=== PATIENT | male | born 1970 | race Hispanic/Latino ===

== ENCOUNTER 2021-03-24 11:31 | Emergency (ER) | payer BC, SELFPAY ==
--- NOTE | 2021-03-24 11:36 | ED.LOWEXIN ---
HPI - Extremity Injury (Lower) General Chief Complaint: Extremity Problem,Nontraumatic Stated Complaint: bilat knee pain Time Seen by Provider: 03/24/21 11:40 Source: patient and RN notes reviewed Mode of arrival: ambulatory Limitations: no limitations History of Present Illness HPI Narrative: 50-year-old male presents concern for bilateral knee pain. Reports pain started up extremity 2 weeks ago, first started on the left knee and in the right knee. He denies any injury or trauma. 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 He denies swelling, bruising, redness, heat. Denies decreased range of motion or strength. Reports medial pain in both knees. Reports he has been using braces which offer some relief. Reports he has been taking Aleve and Tylenol, reports some decrease in pain with those medications. Denies any history of knee pain. MD complaint: other (Knee pain) Related Data Allergies Allergy/AdvReac Type Severity Reaction Status Date / Time No Known Allergies Allergy Verified 03/24/21 11:40 Review of Systems Review of Systems: Narrative: CONSTITUTIONAL: Denies malaise, chills, sweats, or fever. SKIN: Denies bruising, redness, warmth MUSCULOSKELETAL: Reports bilateral knee pain, denies swelling NEUROLOGIC: Denies numbness, weakness All systems reviewed & are unremarkable except as noted in HPI and below PMFSH Comments At time of signature, agree with nursing past medical, surgical, social and family history. There is no relevant family history pertinent to the presenting complaint Exam Narrative: Exam Narrative: GENERAL: Well-appearing, well-nourished, and in no acute distress. HEAD: Normocephalic, atraumatic. EYES: PERRLA, conjunctivae clear NECK: Supple. CHEST: Speaks in full sentences. No respiratory distress. HEART: Regular rate and rhythm. Normal and equal peripheral pulses. EXTREMITIES: Bilateral knees have normal strength and sensation, normal range of motion. No edema or ecchymosis. 5/5 strength with knee flexion and extension. Normal sensation with sensitivity to light touch and pain. No point tenderness. No open wounds, no skin tenting, no devitalized tissue or atrophy, no trophic changes, no obvious deformity, alignment normal, nearby joints and structures intact. Distal pulses palpable and equal bilaterally, skin warm, dry, pink. Capillary refill less than 3 seconds. SKIN: Warm, dry, no rash. NEURO: Alert and oriented x3. PSYCH: Normal mood and affect Course Course Emergency Course: Patient is aware of diagnosis, understands and agrees to treatment plan. Anticipatory guidance given. Patient agrees to follow-up as directed and is aware of reasons to seek care at the emergency department. Portions of this record may have been created with voice recognition software Vital Signs Vital signs: Vital Signs Temperature 97.9 F 03/24/21 11:39 Pulse Rate 75 03/24/21 11:39 Respiratory Rate 16 03/24/21 11:39 Blood Pressure 158/83 H 03/24/21 11:39 Pulse Oximetry 100 03/24/21 11:39 Temperature 97.9 F 03/24/21 11:42 Pulse Rate 75 03/24/21 11:42 Respiratory Rate 16 03/24/21 11:42 Blood Pressure 158/83 H 03/24/21 11:42 Pulse Oximetry 100 03/24/21 11:42 Reviewed. MDM - Extremity Injury (Lower) MDM Narrative Medical decision making narrative: Patients pain is consistent with musculoskeletal etiology. No signs of neurological or vascular compromise on exam. Compartments and tissues are soft without signs of compartment syndrome. Pain is felt appropriate for further evaluation on an outpatient basis. Critical Care Time Critical Care Time Critical Care Time: No Discharge Plan Discharge Clinical Impression: Acute bilateral knee pain Patient Disposition: Home, Self-Care Condition: Stable Instructions: Knee Pain (ED) Additional Instructions: Avoid activities that cause pain until the pain subsides. Ice to the painful areas 2
[2021-03-24 11:39] VITALS: BP 158/83; PULSE 75; RESP 16; TEMP 36.6; O2SAT 100
[2021-03-24 11:42] VITALS: BP 158/83; PULSE 75; RESP 16; TEMP 36.6; O2SAT 100
== END 2021-03-24 12:00 | disposition home or self-care (01) ==
PROVIDERS: Emergency Provider Nurse Practitioner
DX: M25.562 Pain in left knee (principal); M25.561 Pain in right knee
CPT/HCPCS: 99203; G0463

== ENCOUNTER 2021-04-28 08:12 | Outpatient (CLI) | payer BC, SELFPAY ==
--- NOTE | ~2021-04-28 | MR_ITS ---
EXAMINATION: MR knee LT wo con DATE: 04/28/2021 09:12 INDICATION: Left knee pain TECHNIQUE: Magnetic resonance imaging (MRI) of the left knee was performed without intravenous contra st. Sequences included coronal PD-weighted FSE, coronal PD-weighted FS FSE, sagittal T2-weighted FSE , sagittal PD-weighted FS FSE and axial PD weighted fat saturated FSE. COMPARISON: None. FINDINGS: Medial compartment: Complex tear of the body and posterior horn of the medial meniscus. Mild chondral surface irregularit y along the anterior weightbearing medial femoral condyle. Articular cartilage appears otherwise rela tively preserved. Lateral compartment: Lateral meniscus is normal. Focal chondral fissuring with tiny focus of underlying subarticular edema at the central aspect of the lateral tibial plateau. Articular cartilage is otherwise relatively pre served. Patellofemoral compartment: Chondral ulceration and deep fissuring with mild irregularity to the underlying articular cortex at t he inferior aspect of the medial trochlea. Remaining cartilage in the patellofemoral compartment is n ormal. Ligaments and tendons: Anterior and posterior cruciate ligaments are normal. The medial collateral ligament and fibular iveth ateral ligament complex are normal. The extensor mechanism is normal. The visualized medial and later al hamstring tendons as well as the iliotibial band are normal. Fluid: Physiologic amount of fluid in the joint space. No loose osteochondral bodies identified. Osseous/other: Bone alignment is normal. No fracture or pathologic marrow replacing process. IMPRESSION: 1. Complex medial meniscal tear. 2. 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 Reviewed, dictated and finalized at location A. IMPRESSION: 1. Complex medial meniscal tear. 2. 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
== END 2021-04-28 08:13 | disposition home or self-care (01) ==
PROVIDERS: Visit Provider Orthopaedic Surgery
DX: S83.242A Other tear of medial meniscus, current injury, left knee, initial encounter (principal); M17.12 Unilateral primary osteoarthritis, left knee
CPT/HCPCS: 73721

== ENCOUNTER 2021-05-31 01:05 | Day surgery (SDC) | payer BC, SELFPAY ==
[2021-05-30 08:25] VITALS: BMI 35.9
[2021-05-31] VITALS (8 sets, daily range): BP systolic 124–150; BP diastolic 70–89; PULSE 68–80; RESP 12–22; TEMP 36.3–36.4; O2SAT 92–100
--- NOTE | 2021-05-31 08:16 | WPDANESEPPF ---
Anes - Initial Pre Proc Eval Procedure: Operation Date: 05/31/21 11:00 Proposed Procedures p Left Knee Arthroscopy, Proceed As Indicated - Kal Bourne MD Date/Time: 05/31/21 08:16 Surgeon: Kal Bourne MD Pre Op Diagnosis: left knee medial meniscus tear Patient Data Age: 51 Gender: M Height: 1.63 m Weight: 95 kg Allergies Allergy/AdvReac Type Severity Reaction Status Date / Time No Known Allergies Allergy Verified 05/31/21 09:42 Home Medications Medication Instructions Recorded Confirmed Type lisinopril-hydrochlorothiazide 1 tablet PO DAILY 05/30/21 05/31/21 History naproxen sodium [Aleve] 220 mg PO BID 05/30/21 05/31/21 History sildenafil [Viagra] 50 mg PO DAILY PRN 05/30/21 05/31/21 History Patient hx anesthesia problems: none Family hx anesthesia problems: none PMFSH Past Medical History Medical History (Updated 05/30/21 @ 12:52 by Caden Banks DO) Arthritis Hypertension Kidney stones Left knee pain KEYSHAWN (obstructive sleep apnea) Wears glasses Weight gain Surgical History Surgical History History of ankle fusion History of surgery on right wrist Family History Family History Other Cancer Heart disease Hypertension Social History Social History Smoking status: Former smoker Tobacco type: cigarettes Additional smoking assessment comments: 1PPD 23 YRS Alcohol intake: never Substance use: never Living arrangements: with family Gender identity (if verbalized by the patient): Male Anes - Eval Final PreProcedure Day of Procedure 05/31/21 08:16 Patient weight: obese Heart: regular rate and rhythm Lungs: clear to auscultation and normal air movement Airway: Mallampati scale class III Neurological: alert and oriented Last oral intake: >/= 8 hours ASA classification: III Emergent: no Anesthetic plan: proceed Anesthesia type and monitoring: general LMA and standard monitoring Informed Consent: The patient's anesthetic plan and its attendant risks and benefits were discussed with the patient/family/POA. Questions were solicited and answers provided to the satisfaction of the patient/family/POA.
--- NOTE | 2021-05-31 09:34 | ECG_ITS ---
Measurements Intervals [place] Rate: 69 P: 21 GA: 141 QRS: 26 QRSD: 103 T: 40 QT: 384 QTc: 413 Interpretive Statements SINUS RHYTHM NORMAL ECG Electronically Signed On 05-31-2021 11:49:31 CDT by Anastacio Christianson D.O.
[2021-05-31] MEDS: ACETAMINOPHEN 500 MG TABLET 1000 MG PO (09:55)
[2021-05-31] MEDS: LACTATED RINGERS 1,000 ML 30 ML IV CONT ×2 (09:56→12:08)
[2021-05-31] MEDS: CELECOXIB 200 MG CAPSULE PO (09:56)
[2021-05-31 10:13] LABS: Anion Gap 7 mmol/L (8-16); Blood Urea Nitrogen 12 mg/dL (9-20); Calcium 9.2 mg/dL (8.4-10.2); Carbon Dioxide 26 mmol/L (22-30); Chloride 107 mmol/L (98-107); Estimated CRCL calculation 97 ml/min; Estimated Glomerular Filt Rate > 60; Glucose 106 mg/dL (75-110); Potassium 4.3 mmol/L (3.4-5.0); Sodium 140 mmol/L (137-145)
--- NOTE | 2021-05-31 10:47 | SUR.PREOP ---
Dr. Banks notified of EKG completion, NSR
--- NOTE | 2021-05-31 10:54 | WPDHPUPDATE1 ---
History and Physical Update Update Date/Time: 05/31/21 10:54 History and Physical has been reviewed, including an updated exam of the patient. There are NO changes in the patient's condition. Risks, benefits, and alternatives have been discussed and questions answered. Patient agrees to proceed with procedure.
[2021-05-31] MEDS: ceFAZolin 2 GM/D5W 50 ML 2 GM/50 ML BAG IVPB (11:00)
[2021-05-31] MEDS: BUPIVACAINE HCL 0.5% PF 30 ML VIAL INFILTRATE (11:39)
--- NOTE | 2021-05-31 12:08 | P.OP_ITS ---
Procedure Note - Detailed Date of Procedure 05/31/21 Pre-op Diagnosis left knee medial meniscus tear Post-op Diagnosis same Procedure Performed RIGHT KNEE SCOPE Surgeon Kal Bourne MD Anesthesia general Description of Procedure PATIENT WAS TAKEN TO THE OR. RIGHT LEG WAS PREPPED AND DRAPED STERILE. TROCARS W ERE PLACED IN THE USUAL FASHION. CAMERA WAS INTRODUCED. THERE WAS CHONDROMALACIA TO THE PATELLA FEMORAL JOINT. THERE WAS A LOT OF SYNOVITIS IN ALL COMPARTMENTS. THE MEDIAL COMPARTMENT SHOWED CHONDROMALACIA TO THE MEDIAL FEMORAL CONDYLE. A SHAVER WAS USED TO PREFORM A CHONDROPLASTY. THERE WAS A COMPLEX MEDIAL MENISCUS TEAR. THE TEAR WAS RESECTED WITH A BITER AND A SHAVER DOWN TO A SMOOTH BASE. ABOUT 30% OF THE MENISCUS WAS REMOVED. THE ACL WAS INTACT. THE LATERAL MENISCUS WAS TORN AT THE ANTERIOR HORN. THE TEAR WAS RESECTED. THE LAT COMPARTMENT HAD GRADE 2 CHONDROMALACIA AT THE LATERAL P LATEAU. CHONDROPLASTY WAS PREFORMED. A SYNOVECTOMY WAS PREFORMED WELL. THE PATELLO FEMORAL JOINT UNDERWENT CHONDROPLASTY. THERE WAS GRADE 3 CHONDROMALACIA IN MOST OF THE TROCHLEA AND PART OF THE PATELLA. SYNOVECTOMY WAS PREFORMED IN THE SUPERIOR MEDIAL COMPARTMENT. THE WOUNDS WERE APPROXIMATED WITH 4.0 NYLON. STERILE DRESSING WAS APPLIED. PATIENT WAS EXTUBATED. Estimated Blood Loss 5 Complications No immediate complications Condition stable Disposition PACU
--- NOTE | 2021-05-31 12:10 | W.PM.PROC2 ---
Procedure Note - Detailed Date of Procedure 05/31/21 Pre-op Diagnosis left knee medial meniscus tear Post-op Diagnosis same Procedure Performed LEFT KNEE SCOPE Surgeon Kal Bourne MD Anesthesia general Description of Procedure PATIENT WAS TAKEN TO THE OR. LEFT LEG WAS PREPPED AND DRAPED STERILE. TROCARS WERE PLACED IN THE USUAL FASHION. CAMERA WAS INTRODUCED. THERE WAS CHONDROMALACIA TO THE PATELLA FEMORAL JOINT. THERE WAS A LOT OF SYNOVITIS IN ALL COMPARTMENTS. THE MEDIAL COMPARTMENT SHOWED CHONDROMALACIA TO THE MEDIAL FEMORAL CONDYLE. A SHAVER WAS USED TO PREFORM A CHONDROPLASTY AND SYNOVECTOMY. THERE WAS A COMPLEX MEDIAL MENISCUS TEAR. THE TEAR WAS RESECTED WITH A BITER AND A SHAVER DOWN TO A SMOOTH BASE. ABOUT 30% OF THE MENISCUS WAS REMOVED. THE ACL WAS INTACT. THE LATERAL MENISCUS WAS NOT TORN. THE LAT COMPARTMENT HAD NO CHONDROMALACIA. THE PATELLO FEMORAL JOINT UNDERWENT CHONDROPLASTY. THERE WAS GRADE 2 CHONDROMALACIA IN PART OF THE TROCHLEA AND PART OF THE PATELLA. SYNOVECTOMY WAS PREFORMED IN THE SUPERIOR MEDIAL COMPARTMENT. THE WOUNDS WERE APPROXIMATED WITH 4.0 NYLON. STERILE DRESSING WAS APPLIED. PATIENT WAS EXTUBATED. Estimated Blood Loss 5 Complications No immediate complications Condition stable Disposition PACU
[2021-05-31] MEDS: fentaNYL CITRATE INJ (*CRX) 100 MCG/2 ML VIAL 25 MCG IV PUSH ×2 (12:30→12:33)
[2021-05-31] MEDS: oxyCODONE HCL (*CRX) 5 MG TAB IR PO (13:29)
== END 2021-05-31 14:11 | disposition home or self-care (01) ==
PROVIDERS: Anesthesiology; PCP Family Medicine; Visit Provider Orthopaedic Surgery
PROC: (CPT 29870; principal; 2021-05-31 11:00)
DX: M23.332 Other meniscus derangements, other medial meniscus, left knee (principal); M65.862 Other synovitis and tenosynovitis, left lower leg; M94.262 Chondromalacia, left knee; I10 Essential (primary) hypertension; G47.33 Obstructive sleep apnea (adult) (pediatric); Z87.891 Personal history of nicotine dependence; E66.9 Obesity, unspecified; Z68.36 Body mass index [BMI] 36.0-36.9, adult
CPT/HCPCS: 29881; 36415; 80048; 93005; A9270; J0690; J1100; J2250; J2405; J2704; J3010; J7120

== ENCOUNTER 2021-06-27 13:48 | Outpatient (CLI) | payer BC, SELFPAY ==
--- NOTE | ~2021-06-27 | MR_ITS ---
EXAMINATION: MR knee RT wo con DATE: 06/27/2021 14:42 INDICATION: Medial right knee pain TECHNIQUE: Magnetic resonance imaging (MRI) of the right knee was performed without intravenous contr ast. Sequences included coronal PD-weighted FSE, coronal PD-weighted FS FSE, sagittal T2-weighted FS E, sagittal PD-weighted FS FSE and axial PD weighted fat saturated FSE. COMPARISON: Right knee radiographs dated 04/03/2021 FINDINGS: Medial compartment: Longitudinal horizontal tear extending to the inferior articular surface along the inner third of the body and posterior horn of the medial meniscus. Diffuse mild partial-thickness cartilage loss throug hout the anterior to central weightbearing medial femoral condyle. There is a more focal band of deep chondral ulceration with underlying cortical irregularity and mild subarticular edema extending obli quely from the central aspect of the anterior weightbearing medial femoral condyle to the lateral mar gin of the central weightbearing medial femoral condyle. Mild partial-thickness cartilage loss along the medial femoral condyle with smooth chondral surface and without degenerative subchondral changes. Lateral compartment: Lateral meniscus is normal. Articular cartilage is normal. Patellofemoral compartment: Partial-thickness chondral ulceration along the inferior margin of the lateral patellar facet and lik cam deeper fissuring at the inferior aspect of the apical ridge where there is a small focus of mild subarticular edema. Trochlear cartilage appears relatively preserved. Ligaments and tendons: Anterior and posterior cruciate ligaments are normal. The medial collateral ligament and fibular iveth ateral ligament complex are normal. The extensor mechanism is normal. The visualized medial and later al hamstring tendons as well as the iliotibial band are normal. Fluid: Physiologic amount of fluid in the joint space. No loose osteochondral bodies identified. Mild prepat ellar and pretibial subcutaneous edema without discrete bursal fluid collection. Osseous/other: Bone alignment is normal. No fracture or pathologic marrow replacing process. There is mild fatty atr ophy of the musculature in the anterolateral compartment of the proximal calf. IMPRESSION: 1. Medial meniscal tear and mild osteoarthritis in the medial compartment with high-grade chondromala nicole along a portion of the anterior to central weightbearing medial femoral condyle. 2. Mild patellofemoral osteoarthritis with small regions of moderate to high-grade chondromalacia brenda ng the inferior most margin of the lateral patellar facet and apical ridge. Reviewed, dictated and finalized at location A. IMPRESSION: 1. Medial meniscal tear and mild osteoarthritis in the medial compartment with high-grade chondromalacia along a portion of the anterior to central weightbear ing medial femoral condyle. 2. Mild patellofemoral osteoarthritis with small regions of moderate to high-gr rebeca chondromalacia along the inferior most margin of the lateral patellar facet and apical ridge.
== END 2021-06-27 13:49 | disposition home or self-care (01) ==
PROVIDERS: PCP Family Medicine; Visit Provider Orthopaedic Surgery
DX: M25.561 Pain in right knee (principal); S83.241A Other tear of medial meniscus, current injury, right knee, initial encounter; M17.11 Unilateral primary osteoarthritis, right knee; M94.261 Chondromalacia, right knee
CPT/HCPCS: 73721

== ENCOUNTER 2021-08-02 00:12 | Day surgery (SDC) | payer BC, SELFPAY ==
[2021-07-27 13:19] VITALS: BMI 35.7
--- NOTE | 2021-08-01 10:01 | WPDANESEPPF ---
Anes - Initial Pre Proc Eval Procedure: Operation Date: 08/02/21 12:00 Proposed Procedures p Right Knee Arthroscopy, Proceed As Indicated - Kal Bourne MD Date/Time: 08/01/21 10:01 Surgeon: Kal Bourne MD Pre Op Diagnosis: right knee medial meniscus tear Patient Data Age: 51 Gender: M Height: 1.63 m Weight: 94.5 kg Allergies Allergy/AdvReac Type Severity Reaction Status Date / Time No Known Allergies Allergy Verified 07/27/21 13:19 Home Medications Medication Instructions Recorded Confirmed Type lisinopril-hydrochlorothiazide 1 tablet PO DAILY 05/30/21 07/27/21 History naproxen sodium [Aleve] 220 mg PO BID 05/30/21 07/27/21 History sildenafil [Viagra] 50 mg PO DAILY PRN 05/30/21 07/27/21 History chlorhexidine gluconate 4 % 1 applic TOPICAL ONCE #237 ml 07/04/21 Rx topical liquid Patient hx anesthesia problems: none Family hx anesthesia problems: none PMFSH Past Medical History Medical History Arthritis Hypertension Kidney stones Left knee pain KEYSHAWN (obstructive sleep apnea) Right knee pain Wears glasses Weight gain Surgical History Surgical History History of ankle fusion History of surgery on right wrist Family History Family History Other Cancer Heart disease Hypertension Social History Social History Smoking packs per day: 1 Smoking cigarettes per day: 20.0 Years smoked: 20 Smoking pack-years: 20.00 Smoking status: Former smoker Tobacco type: cigarettes Smoking end date: 07/27/04 Additional smoking assessment comments: 1PPD 23 YRS Alcohol intake: never Substance use: never Living arrangements: with family Gender identity (if verbalized by the patient): Male Spiritual care concerns: No Anes - Eval Final PreProcedure Day of Procedure 08/01/21 10:01 Patient weight: obese Heart: regular rate and rhythm Lungs: clear to auscultation and normal air movement Airway: Mallampati scale class II Neurological: alert and oriented Last oral intake: >/= 8 hours ASA classification: III Emergent: no Anesthetic plan: proceed Anesthesia type and monitoring: general LMA and standard monitoring Informed Consent: The patient's anesthetic plan and its attendant risks and benefits were discussed with the patient/family/POA. Questions were solicited and answers provided to the satisfaction of the patient/family/POA.
[2021-08-02] VITALS (8 sets, daily range): BP systolic 100–131; BP diastolic 53–85; PULSE 69–87; RESP 14–24; TEMP 36–36.7; O2SAT 95–100
--- NOTE | 2021-08-02 07:13 | WPDHPUPDATE1 ---
History and Physical Update Update Date/Time: 08/02/21 07:13 History and Physical has been reviewed, including an updated exam of the patient. There are NO changes in the patient's condition. Risks, benefits, and alternatives have been discussed and questions answered. Patient agrees to proceed with procedure.
[2021-08-02] MEDS: LACTATED RINGERS 1,000 ML 30 ML IV CONT (10:15)
[2021-08-02] MEDS: ceFAZolin 2 GM/D5W 50 ML 2 GM/50 ML BAG IVPB (10:29)
[2021-08-02] MEDS: CELECOXIB 200 MG CAPSULE PO (10:35)
[2021-08-02] MEDS: ACETAMINOPHEN 500 MG TABLET 1000 MG PO (10:35)
[2021-08-02] MEDS: KETOROLAC 15 MG/ML VIAL (*BKC) IV PUSH (10:36)
[2021-08-02] MEDS: fentaNYL CITRATE INJ (*CRX) 100 MCG/2 ML VIAL 25 MCG IV PUSH ×2 (11:55→12:01)
--- NOTE | 2021-08-02 11:57 | W.PM.PROC2 ---
Procedure Note - Detailed Date of Procedure 08/02/21 Pre-op Diagnosis right knee medial meniscus tear Post-op Diagnosis same (WITH LATERAL MENISCUS TEAR) Procedure Performed RIGHT KNEE SCOPE Surgeon Kal Bourne MD Anesthesia general Description of Procedure PATIENT WAS TAKEN TO THE OR. RIGHT LEG WAS PREPPED AND DRAPED STERILE. TROCARS WERE PLACED IN THE USUAL FASHION. CAMERA WAS INTRODUCED. THERE WAS MINIMAL CHONDROMALACIA TO THE PATELLA FEMORAL JOINT. THERE WAS MILD SYNOVITIS IN ALL COMPARTMENTS. THE MEDIAL COMPARTMENT SHOWED CHONDROMALACIA TO THE MEDIAL FEMORAL CONDYLE. A SHAVER WAS USED TO PREFORM A CHONDROPLASTY. THERE WAS A COMPLEX MEDIAL MENISCUS TEAR. THE TEAR WAS RESECTED WITH A BITER AND A SHAVER DOWN TO A SMOOTH BASE. ABOUT 30% OF THE MENISCUS WAS REMOVED. THE ACL WAS INTACT. THE LATERAL MENISCUS WAS TORN AT THE ANTERIOR HORN AND JUNCTION OF THE MID PORTION. THE TEAR WAS RESECTED. THE LATERAL COMPARTMENT HAD GRADE 2 CHONDROMALACIA AT THE LATERAL PLATEAU. CHONDROPLASTY WAS PREFORMED. THE PATELLO FEMORAL JOINT UNDERWENT CHONDROPLASTY. SYNOVECTOMY WAS PREFORMED IN THE SUPERIOR MEDIAL COMPARTMENT. CHONDROPLASTY OF THE PATELLA WAS PREFORMED.THE WOUNDS WERE APPROXIMATED WITH 4.0 NYLON. STERILE DRESSING WAS APPLIED. PATIENT WAS EXTUBATED. Estimated Blood Loss 5 Complications No immediate complications Condition stable Disposition PACU
[2021-08-02] MEDS: oxyCODONE HCL (*CRX) 5 MG TAB IR PO (12:45)
--- NOTE | 2021-08-02 14:22 | SUR.PHASEII ---
1335 PT MEETS ANESTHESIA DISCHARGE CRITERIA. PT DRESSED & WAITING FOR SPOUSE.
== END 2021-08-02 13:56 | disposition home or self-care (01) ==
PROVIDERS: PCP Family Medicine; Visit Provider Orthopaedic Surgery
PROC: (CPT 29870; principal; 2021-08-02 10:30)
DX: M23.331 Other meniscus derangements, other medial meniscus, right knee (principal); M23.341 Other meniscus derangements, anterior horn of lateral meniscus, right knee; M94.261 Chondromalacia, right knee; M65.861 Other synovitis and tenosynovitis, right lower leg; I10 Essential (primary) hypertension; G47.33 Obstructive sleep apnea (adult) (pediatric); Z87.891 Personal history of nicotine dependence; E66.9 Obesity, unspecified; Z68.36 Body mass index [BMI] 36.0-36.9, adult
CPT/HCPCS: 29880; A9270; J0690; J1100; J1885; J2250; J2370; J2405; J2704; J3010; J7120

== ENCOUNTER 2022-04-25 08:01 | Outpatient (CLI) | payer BC, SELFPAY ==
[2022-04-25 09:21] LABS: Basophils Percent Auto 0.2 % (0.2-1.2); Eosinophils Absolute Auto 0.3 K/mm3 (0-0.3); Eosinophils Percent Auto 5.3 % (0-4.4); Hematocrit 42.1 % (42.0-52.0); Immature Granulocyte Absolute 0.02 K/mm3 (0.00-0.031); Immature Granulocyte Percent A 0.3 % (0-0.5); Lymphocytes Absolute Auto 2.14 K/mm3 (0.9-3.2); Lymphocytes Percent Auto 34.4 % (18.3-44.2); Mean Corpuscular HGB Conc 33.3 g/dl (32-36); Mean Corpuscular Hemoglobin 28.2 pg (26-34); Mean Corpuscular Volume 84.7 fl (80-100); Mean Platelet Volume 9.9 fl (7.4-10.4); Monocytes Absolute Auto 0.3 K/mm3 (0.1-0.6); Monocytes Percent Auto 4.5 % (2.6-8.5); Neutrophils Absolute Auto 3.4 K/mm3 (1.3-6.7); Neutrophils Percent Auto 55.3 % (45.5-73.1); Platelet Count Result 275 k/mm3 (150-375); Red Blood Count 4.97 M/mm3 (4.6-6.20); Red Cell Distribution Width 13.3 % (11.5-14.5); White Blood Count 6.2 K/mm3 (4.5-10.0)
[2022-04-25 09:31] LABS: Appearance Urine Clear (Clear); Bilirubin Urine Negative (Negative); Blood Urine Negative (Negative); Color Urine Yellow (Yellow); Glucose Urine UA Negative (Negative); Ketones Urine Negative (Negative); Leukocyte Esterase Ur Negative LEU/UL (Negative); Nitrate Urine Negative (Negative); Protein Urine Negative (Negative); Specific Grav Ur >= 1.030 (1.001-1.035); Urobilinogen Urine 0.2 mg/dL (<2.0)
[2022-04-25 09:35] LABS: Prothrombin Time 12.6 Seconds (11.1-14.7)
[2022-04-25 09:36] LABS: Albumin Level 4.4 g/dL (3.5-5.1); Anion Gap 5 mmol/L (8-16); Blood Urea Nitrogen 14 mg/dL (9-20); Carbon Dioxide 29 mmol/L (22-30); Chloride 107 mmol/L (98-107); Estimated Glomerular Filt Rate > 60; Glucose 106 mg/dL (65-110); Potassium 4.3 mmol/L (3.4-5.0); Sodium 141 mmol/L (137-145)
[2022-04-25 10:05] LABS: Urine Cotinine NEGATIVE
[2022-04-25 10:16] LABS: Hemoglobin A1C 5.9 % (<5.7)
[2022-04-25 10:20] LABS: Add Urine Microscopic? NO
== END 2022-04-25 08:02 | disposition home or self-care (01) ==
PROVIDERS: PCP Family Medicine; Visit Provider Orthopaedic Surgery
DX: Z01.818 Encounter for other preprocedural examination (principal); M17.11 Unilateral primary osteoarthritis, right knee
CPT/HCPCS: 80048; 80307; 81003; 82040; 83036; 85025; 85610; 85730; 87081

== ENCOUNTER 2022-05-09 00:47 | Day surgery (SDC) | payer BC, SELFPAY ==
[2022-04-25 08:17] VITALS: BMI 37.8
[2022-04-25 08:26] VITALS: BP 156/86; PULSE 77; RESP 16; TEMP 36.4; O2SAT 96
--- NOTE | 2022-04-25 08:39 | PC.NURSE ---
Report to the Outpatient Waiting Room, entrance under the green pavilion located off [facility], at time __9:00AM on date __05/09/22 . OR Time: _11:00AM . - You and your visitor will be asked a series of questions to screen for COVID 19 for your protection. - Only one visitor is allowed at this time. - The patient visitor is requested to leave or wait in car when not with patient. - A mask is required within the hospital. Patients may have clear liquids (water, carbonated beverages, clear teas, apple juice) until 3 hours prior to surgery with a maximum of 20 ounces. - No food from midnight until time of surgery - Infants may have breast milk until 4 hours before surgery, infant formula 6 hours prior to surgery. - Children will be allowed to drink immediately following surgery. If applicable, please bring a bottle or sippy cup to assist with drinking. Juice, water, soda, and popsicles are readily available. For infants on formula, please bring formula the day of surgery. Pacifiers are allowed. Take the following medications with a SIP of water the morning of surgery: __NONE Medications to discontinue per physician __HOLD ALL VITAMINS/SUPPLEMENTS AND ALEVE 7 DAYS PRE-OP Date to take last dose____05/02/22 Please no make-up, nail mohawk, hairspray, perfume, deodorant, or body powder the day of surgery. No jewelry (including any body piercings) or valuables the day of surgery, leave them at home. Please take a shower or bath the night before, or the morning of, surgery with an antibacterial soap. Wear comfortable, loose fitting clothing. Children are encouraged to wear pajamas. - Jewelry must be removed prior to entering the operating room. Rings and piercings that are not removed may be cut off. - The hospital will not accept responsibility for valuables. - Please leave all valuables, including medications, at home the day of surgery. *HIBICLENS SHOWERS PER DR WILLIAMSON If you are going home after surgery, a licensed water truck driver must drive you home. - NO public transportation without another adult. - We recommend that an adult stay with you for 24 hours following discharge. - We also recommend that you do not drive, make important decision, drink alcoholic beverages, or take any drugs that were not prescribed by your health care provider for at least 24 hours after your discharge time. For Pediatric surgeries, we recommend two adults accompany the child home (only one inside the building at this time). Follow any additional instructions given to you from your surgeon. If you or anyone in your household have experienced Covid symptoms in the past week, please notify your surgeon or the nurse liaison at the phone number below for possible testing. Telephone instructions given to _PATIENT and asked if any additional questions and then verbalized understanding. Patient advised to call surgeon office or pre surgery nurse liaison [phone] if any additional questions.
--- NOTE | 2022-05-08 13:34 | WPDANESEPPF ---
Anes - Initial Pre Proc Eval Procedure: Operation Date: 05/09/22 11:00 Proposed Procedures p Right Total Knee Arthroplasty, Left Knee Aspiration with Injection - Kal Bourne MD <Johnathan Hill MD - Last Filed: 05/10/22 14:12> Date/Time: 05/08/22 13:34 <Johnathan Hill MD - Last Filed: 05/10/22 14:12> Surgeon: Kal Bourne MD <Johnathan Hill MD - Last Filed: 05/10/22 14:12> Pre Op Diagnosis: right knee djd, left knee djd <Johnathan Hill MD - Last Filed: 05/10/22 14:12> Patient Data Age: 51 Gender: M Height: 1.59 m Weight: 95.4 kg <Johnathan Hill MD - Last Filed: 05/10/22 14:12> Last Vital Signs Temp 97.6 F 04/25/22 08:26 Pulse 77 04/25/22 08:26 Resp 16 04/25/22 08:26 BP 156/86 H 04/25/22 08:26 Pulse Ox 96 04/25/22 08:26 O2 Del Method Room Air 04/25/22 08:26 <Johnathan Hill MD - Last Filed: 05/10/22 14:12> Allergies Allergy/AdvReac Type Severity Reaction Status Date / Time No Known Allergies Allergy Verified 05/09/22 09:29 <Johnathan Hill MD - Last Filed: 05/10/22 14:12> Home Medications Medication Instructions Recorded Confirmed Type lisinopril 10 1 tablet PO QAM 05/30/21 05/09/22 History mg-hydrochlorothiazide 12.5 mg tablet naproxen sodium 220 mg capsule 440 mg PO BID PRN Pain 05/30/21 05/09/22 History (Aleve) meclizine 12.5 mg tablet 12.5 mg PO TID PRN Dizziness 03/12/22 05/09/22 History multivitamin 1 tablet PO DAILY 04/25/22 05/09/22 History aspirin 325 mg tablet,delayed 325 mg PO Q12HR 28 days #56 tabs 05/10/22 Rx release celecoxib 200 mg capsule (Celebrex) 200 mg PO BIDWM 14 days #28 caps 05/10/22 Rx oxycodone-acetaminophen 5 mg-325 1 - 2 tablet PO Q4-6H PRN pain #56 05/10/22 Rx mg tablet tabs sennosides 8.6 mg-docusate sodium 2 tablet PO BID 14 days #56 tabs 05/10/22 Rx 50 mg tablet (Senokot-S) <Johnathan Hill MD - Last Filed: 05/10/22 14:12> Patient hx anesthesia problems: none <Robles Knight MD - Last Filed: 05/09/22 11:10> Family hx anesthesia problems: none <Robles Knight MD - Last Filed: 05/09/22 11:10> Results Review: All pre-operative results and documents have been reviewed as part of the pre-operative evaluation. <Johnathan Hill MD - Last Filed: 05/10/22 14:12> PMFSH Past Medical History Medical History: Medical History Arthritis Hypertension Kidney stones Left knee pain KEYSHAWN (obstructive sleep apnea) Right knee pain Wears glasses Weight gain <Johnathan Hill MD - Last Filed: 05/10/22 14:12> Surgical History Surgical History: Surgical History (Updated 05/10/22 @ 08:34 by JAVID Mena) History of ankle fusion History of surgery on right wrist S/P total knee arthroplasty <Johnathan Hill MD - Last Filed: 05/10/22 14:12> Family History Family History: Family History Other Cancer Heart disease Hypertension <Johnathan Hill MD - Last Filed: 05/10/22 14:12> Social History Social History: Social History Smoking packs per day: 1 Smoking cigarettes per day: 20.0 Years smoked: 22 Smoking pack-years: 22.00 Smoking status: Former smoker Tobacco type: cigarettes Smoking end date: 07/27/04 Additional smoking assessment comments: 2009-1PPD 23 YRS Alcohol intake: never Substance use: never Living arrangements: with family Additional living arrangements comments: & CHILDREN Gender identity (if verbalized by the patient): Male Spiritual care concerns: Yes (Religion) <Johnathan Hill MD - Last Filed: 05/10/22 14:12> Anes - Eval Final PreProcedure Day of Procedure 05/08/22 13:34 <Johnathan Hill MD - Last Filed: 05/10/22 14:12> Patient weight: obese <Robles Knight MD - Last Filed: 04/25
[2022-05-09] VITALS (16 sets, daily range): BP systolic 130–187; BP diastolic 70–96; PULSE 71–92; RESP 14–20; TEMP 35.9–36.6; O2SAT 93–100
--- NOTE | ~2022-05-09 | XR_ITS ---
EXAMINATION: XR knee RT 2V DATE: 05/09/2022 15:24 INDICATION: Postoperative evaluation following right total knee arthroplasty. TECHNIQUE: Anteroposterior and lateral views of the right knee were obtained. COMPARISON: 04/13/2022 FINDINGS: Right total knee arthroplasty without patellar resurfacing appears well seated and in near anatomic a lignment. No fractures identified. Skin tanvir and expected postoperative subcutaneous, intramedul kim and intra-articular gas. IMPRESSION: 1. Right total knee arthroplasty without patellar resurfacing, negative for postoperative purposes. Reviewed, dictated and finalized at location A. IMPRESSION: 1. Right total knee arthroplasty without patellar resurfacing, negative for pos toperative purposes.
--- NOTE | 2022-05-09 08:11 | WPDHPUPDATE1 ---
History and Physical Update Update Date/Time: 05/09/22 08:11 History and Physical has been reviewed, including an updated exam of the patient. There are NO changes in the patient's condition. Risks, benefits, and alternatives have been discussed and questions answered. Patient agrees to proceed with procedure.
[2022-05-09] MEDS: ACETAMINOPHEN 500 MG TABLET 1000 MG PO (09:32)
[2022-05-09] MEDS: LACTATED RINGERS 1,000 ML 30 ML IV CONT ×2 (09:48→14:56)
[2022-05-09] MEDS: TRANEXAMIC ACID 1,000MG/ISO100 1,000 MG/100 ML BAG 200 MG IVPB (10:22)
--- NOTE | 2022-05-09 11:11 | WPDANESPNB ---
Anes - Peripheral Nerve Block Date/Time: 05/09/22 11:11 I have discussed with the patient/family/POA the placement of a peripheral nerve block for post-operative pain management, including associated risks, benefits, complications, and side effects. Alternative methods of post-operative analgesia were detailed. Questions were solicited and answers provided to the satisfaction of the patient/family/POA. Time-Out: A pre-procedural Time-Out was completed immediately before starting the procedure and confirmed: Patient Identification, Site, Procedure, Patient Position and the Availability of Requisite Equipment. Clinical Indications: Acute post-operative pain management requested by the operative surgeon. Nerve Block Insertion Note Anes-nerve block: adductor canal right Patient position: supine Skin prep: chlorhexidine Needle: 22 gauge, stimulating, insulated echogenic needle. Needle length: 80 mm Technique: ultrasound Technique comment: in plane Injectate: bupivacaine 0.5% with epi 5 mcg/ml (30cc) Observations: tolerated well Complications: none Procedure start time:: 1150 Procedure end time:: 1155
--- NOTE | 2022-05-09 11:58 | WPDHPUPDATE1 ---
History and Physical Update Update Date/Time: 05/09/22 11:58 History and Physical has been reviewed, including an updated exam of the patient. There are NO changes in the patient's condition. Risks, benefits, and alternatives have been discussed and questions answered. Patient agrees to proceed with procedure. WE WILL ALSO INJECT THE LEFT KNEE DUE TO HIS ONGOING PAIN AND ARTHRITIS.
[2022-05-09] MEDS: ceFAZolin 2 GM/D5W 50 ML 2 GM/50 ML BAG IVPB ×2 (12:05→21:00)
[2022-05-09] MEDS: TRANEXAMIC ACID 1,000 MG/10 ML AMPUL 1000 MG IV PUSH (14:04)
[2022-05-09] MEDS: methylPREDNISolone ACETATE 80 MG/ML VIAL IM (14:27)
--- NOTE | 2022-05-09 15:12 | W.PM.PROC2 ---
Procedure Note - Detailed Date of Procedure 05/09/22 Pre-op Diagnosis right knee djd, left knee djd Post-op Diagnosis Same Procedure Performed R TKA, LEFT KNEE INJECTION Surgeon Kal Bourne MD Anesthesia General Description of Procedure THE RIGHT KNEE WAS PREPPED AND DRAPED IN THE STERILE FASHION. THERE WAS A 10 DEGREE FLEXION CONTRACTURE. A MIDLINE SKIN INCISION WAS MADE. A MEDIAL PARAPATELLAR ARTHROTOMY WAS MADE. THE PATELLA WAS EVERTED. THERE WAS TRICOMPARTMENT DJD. THERE WAS MINIMAL PATELLA DJD. AN INTRAMEDULLARY LUDA WAS PLACED IN THE FEMUR. A DISTAL FEMORAL CUT WAS MADE IN 5 DEGREES OF VALGUS REMOVING APPROXIMATELY 9 MM OF BONE FROM THE DISTAL FEMUR. THE FEMUR WAS SIZED TO 55. A 55 FEMORAL CUTTING BLOCK WAS PLACED IN 3 DEGREES OF EXTERNAL ROTATION AND IN ALIGNMENT WITH ROCKY'S LINE AND THE TRANSEPICONDYLAR AXIS. ANTERIOR POSTERIOR AND CHAMFER CUTS WERE MADE. THE CUTS WERE EXCELLENT. NEXT AN INTRAMEDULLARY CUTTING GUIDE WAS PLACED IN THE TIBIA. A TRANS TIBIAL CUT WAS MADE ALONG THE LONG AXIS OF THE TIBIA. APPROXIMATELY 10 MM OF BONE WAS REMOVED FROM THE HIGH SIDE OF THE TIBIA. THE TIBIA WAS THEN PLANED TO A SMOOTH SURFACE. POSTERIOR FEMORAL OSTEOPHYTES WERE REMOVED FROM THE FEMORAL CONDYLES. A 63 TIBIAL TRIAL WAS PLACED IN ALIGNMENT WITH THE 1/3 MEDIAL ASPECT OF THE TIBIAL TUBERCLE. THEN A 55 FEMORAL TRIAL COMPONENT WAS PLACED. BOTH HAD EXCELLENT FITS. EVENTUALLY A 10 MM CR POLYETHYLENE TRIAL COMPONENT WAS PLACED. THE KNEE WAS TAKEN THROUGH A RANGE OF MOTION. LIGAMENT BALANCING WAS PREFORMED. THE KNEE CAME OUT TO FULL EXTENSION. THERE WAS NO ABNORMAL TILT TO THE PATELLA. THERE WAS GOOD A/P AND VARUS/VALGUS STABILITY. THERE WAS NO EXCESSIVE ROLL BACK WITH FLEXION. THE TRIAL COMPONENTS WERE REMOVED. THEN A 55 FEMORAL COMPONENT AND 63 TIBIAL COMPONENT WITH A 10 CR POLYETHYLENE COMPONENT WERE CEMENTED INTO PLACE. ONCE THE CEMENT WAS HARD THE KNEE WAS TAKEN THROUGH A ROM AGAIN AND FOUND TO BE STABLE WITH NO PATELLA TILT NO EXCESSIVE ROLL BACK WITH FLEXION AND GOOD STABILITY WITH COMPLETE AND FULL EXTENSION. THE KNEE WAS IRRIGATED WITH STERILE BETADINE AND WATER FOR ABOUT 3 MINUTES. THE BLEEDERS WERE CAUTERIZED. THE ARTHROTOMY WAS REPAIRED WITH NUMBER 1 VICRYL. THE SUB CUTANEOUS LAYER WITH 2-0 VICRYL AND THE SKIN WITH MYRIAM. THE WOUND WAS WASHED AND A STERILE DRESSING WAS APPLIED. NEXT THE LEFT KNEE WAS PREPPED AND 1 CC DEPO MEDROL 80 MG AND 5 CC MARCAINE 0.5% WAS INJECT INTO THE LEFT KNEE JOINT. PATIENT WAS EXTUBATED AND SENT TO THE RECOVERY ROOM. Estimated Blood Loss -150.0 Pathology None sent Complications No immediate complications Condition Stable Disposition PACU
--- NOTE | 2022-05-09 15:16 | SUR.PHASEI ---
CALLED DR WILLIAMSON, ASKED IF HE WANTS POST FILMS, YES
[2022-05-09] MEDS: fentaNYL CITRATE INJ (*CRX) 100 MCG/2 ML VIAL 25 MCG IV PUSH ×6 (15:29→16:57)
--- NOTE | 2022-05-09 16:50 | SUR.PHASEI ---
1640; PT SLEEPING QUITE A BIT. AWAKENS AND STATES PAIN IS 8-9/10. PT RELAXED, FLACC SCORE =0-1. FENTANYL GIVEN PRN
--- NOTE | 2022-05-09 16:55 | SUR.PHASEI ---
PT AWAKE AND ALERT. EATING ICE CHIPS
--- NOTE | 2022-05-09 17:05 | SUR.PHASEI ---
PT AWAKE AND ALERT. STATES PAIN MORE TOLERABLE NOW. EATING ICE CHIPS SITTING UP.
--- NOTE | 2022-05-09 17:58 | ADMGEN ---
This patient, Pranay Elder, was admitted to Medical Room 258-01. Patient/family oriented to hospital policies and general routines including ID bracelet, bed and alarms, visiting hours, pain management, procedures, bathroom and other care routines, personal items, smoking policy, room service/diet, and visiting hours. Information on how to activate the Rapid Response Team has been discussed. Patient/Family are encouraged to report perceived risks to care and to ask questions if they do not understand what they are told or what they should do.
[2022-05-09] MEDS: SODIUM CHLORIDE 0.9% IV 1,000 ML 125 ML IV CONT (18:24)
[2022-05-09] MEDS: oxyCODONE/ACETAMINOPHEN (*CRX) 5-325 MG TABLET 1 TABLET PO (18:25)
[2022-05-09] MEDS: SENNA/DOCUSATE SODIUM TABLET 2 TAB PO (18:26)
[2022-05-09] MEDS: CELECOXIB 200 MG CAPSULE PO (18:26)
[2022-05-09] MEDS: ASPIRIN 325 MG ENTERIC TABLET PO (21:00)
[2022-05-09] MEDS: diazePAM (*CRX) 5 MG TABLET PO (21:03)
[2022-05-10 01:06] VITALS: BP 129/62; PULSE 77; RESP 14; TEMP 36.4; O2SAT 98
[2022-05-10] MEDS: ceFAZolin 2 GM/D5W 50 ML 2 GM/50 ML BAG IVPB ×2 (03:24→11:40)
[2022-05-10] MEDS: oxyCODONE/ACETAMINOPHEN (*CRX) 5-325 MG TABLET 1 TABLET PO (03:28)
[2022-05-10 05:30] VITALS: BP 124/56; PULSE 75; RESP 18; TEMP 36.4; O2SAT 98
[2022-05-10 05:39] LABS: Basophils Percent Auto 0.1 % (0.2-1.2); Eosinophils Percent Auto 0.1 % (0-4.4); Hematocrit 35.8 % (42.0-52.0); Hemoglobin 11.4 g/dL (14.0-18.0); Immature Granulocyte Absolute 0.04 K/mm3 (0.00-0.031); Immature Granulocyte Percent A 0.3 % (0-0.5); Lymphocytes Absolute Auto 1.45 K/mm3 (0.9-3.2); Lymphocytes Percent Auto 12.4 % (18.3-44.2); Mean Corpuscular HGB Conc 31.8 g/dl (32-36); Mean Corpuscular Hemoglobin 27.9 pg (26-34); Mean Corpuscular Volume 87.7 fl (80-100); Mean Platelet Volume 10.1 fl (7.4-10.4); Monocytes Absolute Auto 0.6 K/mm3 (0.1-0.6); Monocytes Percent Auto 5.5 % (2.6-8.5); Neutrophils Absolute Auto 9.6 K/mm3 (1.3-6.7); Neutrophils Percent Auto 81.6 % (45.5-73.1); Platelet Count Result 243 k/mm3 (150-375); Red Blood Count 4.08 M/mm3 (4.6-6.20); Red Cell Distribution Width 13.2 % (11.5-14.5); White Blood Count 11.7 K/mm3 (4.5-10.0)
[2022-05-10 05:52] LABS: Anion Gap 7 mmol/L (8-16); Blood Urea Nitrogen 13 mg/dL (9-20); Calcium 7.8 mg/dL (8.4-10.2); Carbon Dioxide 24 mmol/L (22-30); Chloride 105 mmol/L (98-107); Estimated CRCL calculation 106 ml/min; Estimated Glomerular Filt Rate > 60; Glucose 120 mg/dL (65-110); Potassium 4.3 mmol/L (3.4-5.0); Sodium 136 mmol/L (137-145)
[2022-05-10] MEDS: oxyCODONE/ACETAMINOPHEN (*CRX) 5-325 MG TABLET 2 TABLET PO (08:05)
[2022-05-10] MEDS: CELECOXIB 200 MG CAPSULE PO (09:01)
[2022-05-10] MEDS: MULTIVITAMINS THERAPEUTIC TAB (*BKC) 1 TABLET PO (09:01)
[2022-05-10] MEDS: polyethylene glycoL 3350 17 GM POWD.PACK PO (09:01)
[2022-05-10] MEDS: ASPIRIN 325 MG ENTERIC TABLET PO (09:01)
[2022-05-10] MEDS: SENNA/DOCUSATE SODIUM TABLET 2 TAB PO (09:01)
--- NOTE | 2022-05-10 09:13 | PM.PNORT ---
Progress Note: A&P Assessment and Plan (1) S/P total knee arthroplasty: Code(s): Z96.659 - Presence of unspecified artificial knee joint Status: Acute Assessment and Plan: POD #1 : Right TKA Continue PT/OT. WBAT. Walker. HIGH FALL RISK. Continue pain control. Ice knee. Protect skin. DVT prophylaxis with Aspirin. SCDs. Incentive Spirometry Use reviewed. Monitor Dressing. Change prior to discharge. Bowel Regimen. Dispo: Home with Home Health today pending progress with PT/OT Subjective Subjective Date/Time Seen: 05/10/ 09:13 Post Op day: 1 Interval history: POD #1: Right TKA Patient doing well with PT/OT. Pain well controlled. No new complaints. Hopeful for discharge home today. Review of Systems Review of Systems: All systems reviewed & are unremarkable except as noted in HPI and below Constitutional: Constitutional: Denies fever(s) and Denies headache(s) ENT: Denies headache(s) Cardiovascular: Cardiovascular: Denies chest pain, Denies diaphoresis, Denies palpitations and Denies dyspnea Respiratory: Respiratory: Denies dyspnea Gastrointestinal: Gastrointestinal: Denies abdominal pain, Denies constipation, Denies nausea and Denies vomiting Genitourinary: Genitourinary: Denies dysuria and Reports nocturia Musculoskeletal: Musculoskeletal: Reports arthralgias (Right Knee ) and Reports joint swelling (Right Knee ) Neurologic: Denies headache(s) Endocrine: Endocrine: Denies palpitations Exam Const: General: comfortable and no acute distress Resp: Effort & Inspection: normal respiratory effort Cardio: Rate: regular rate Rhythm: regular rhythm GI: GI Palp: Yes Soft to palpation, No Tenderness to palpation present (GI) and No Guarding due to palpation present (GI) Skin: Wounds: wounds noted Other: Incision c/d/i. No surrounding redness/warmth. No hematoma. Mild ecchymosis. No wound dehiscence Neuro: Cognition (Neuro): normal cognition Other: NV intact aside from block. Moves toes. Sensation intact to light touch. +ankle dorsiflexion/plantarflexion. Extrem: Right lower extremity: normal to inspection, knee Details: tenderness (diffuse, mild ) Location: of the patella, swelling (diffuse, consistent with surgical intervention ), abnormal ROM Details: pain with active ROM during, pain with passive ROM during and with range as follows (limited due to recent surgical intervention ); able to extend lower leg actively and ecchymosis (mild ), lower leg (Negative Jack's Sign ) Details: normal to inspection; no erythema and no tenderness, ankle (+ankle dorsiflexion/plantarflexion ) Details: normal to inspection, no edema and normal ROM; no tenderness, no swelling and no ecchymosis and foot Details: normal capillary refill, normal to inspection, vascular exam Details: dorsalis pedis pulse present and motor-sensory exam Details: light-touch normal; no tenderness Left lower extremity: normal to inspection Psych: Mental Status: mental status grossly normal Objective Data Vital Signs Vital Signs: Vital Signs - 24 hr 05/09/22 09:19 05/09/22 14:56 05/09/22 15:10 Temperature 36.6 C 36.3 C L Pulse Rate 87 90 87 Respiratory Rate 16 20 16 Blood Pressure 130/79 153/89 H 146/96 H Pulse Oximetry 98 99 100 Oxygen Delivery Room Air Simple Face Mask Simple Face Mask Oxygen Flow Rate 6 6 05/09/22 15:25 05/09/22 15:40 05/09/22 15:55 Temperature Pulse Rate 90 90 90 Respiratory Rate 18 14 18 Blood Pressure 157/81 H 143/80 H 163/77 H Pulse Oximetry 99 96 93 Oxygen Delivery Simple Face Mask Room Air Room Air Oxygen Flow Rate 6 05/09/22 16:10 05/09/22 16:25 05/09/22 16:40 Temperature Pulse Rate 92 85 88 Respiratory Rate 17 16 16 Blood Pressure 158/94 H 154/90 H 146/88 H Pulse Oximetry 93 94 97 Oxygen Delivery Room Air Room Air Room Air Oxygen Flow Rate 05/09/22 16:55 05/09/22 17:15 05/09/22 17:21 Temperature 35.9 C L 36.1 C L Pulse Rate 88 80 85 Respirato
--- NOTE | 2022-05-10 09:16 | PM.DS ---
DS: Admitting Diagnosis Discharge Date 05/10/22 Admitting Diagnosis Right Knee DJD DS: Discharge Diagnosis Discharge Diagnosis (1) S/P total knee arthroplasty: Code(s): Z96.659 - Presence of unspecified artificial knee joint Status: Acute Assessment and Plan: POD #1 : Right TKA Continue PT/OT. WBAT. Walker. HIGH FALL RISK. Continue pain control. Ice knee. Protect skin. DVT prophylaxis with Aspirin. SCDs. Incentive Spirometry Use reviewed. Monitor Dressing. Change prior to discharge. Bowel Regimen. Dispo: Home with Home Health today pending progress with PT/OT DS: Summary Hospital Course Reason for hospitalization: Right TKA Hospital Course: 51 year old male admitted s/p right TKA and left knee joint injection with cortisone for postoperative medical management, pain control and mobilization with PT/OT. Patient progressed well on POD #1. He performed well with PT/OT. Pain well controlled. He has been cleared to be discharged home with home health. He will follow up in the outpatient orthopedic clinic. Status at Discharge Functional status at discharge: uses cane/walker Overall status at discharge: patient is progressing back to baseline Time Spent with Patient Time attestation: Total time spent providing and/or coordinating discharge services: Exam Const: General: comfortable and no acute distress Resp: Effort & Inspection: normal respiratory effort Cardio: Rate: regular rate Rhythm: regular rhythm Skin: Wounds: wounds noted Other: Incision c/d/i. No surrounding redness/warmth. No hematoma. Mild ecchymosis. No wound dehiscence Neuro: Cognition (Neuro): normal cognition Other: NV intact aside from block. Moves toes. Sensation intact to light touch. +ankle dorsiflexion/plantarflexion. Extrem: Right lower extremity: normal to inspection, knee Details: tenderness (diffuse, mild ) Location: of the patella, swelling (diffuse, consistent with surgical intervention ), abnormal ROM Details: pain with active ROM during, pain with passive ROM during and with range as follows (limited due to recent surgical intervention ); able to extend lower leg actively and ecchymosis (mild ), lower leg (Negative Jack's Sign ) Details: normal to inspection; no erythema and no tenderness, ankle (+ankle dorsiflexion/plantarflexion ) Details: normal to inspection, no edema and normal ROM; no tenderness, no swelling and no ecchymosis and foot Details: normal capillary refill, normal to inspection, vascular exam Details: dorsalis pedis pulse present and motor-sensory exam Details: light-touch normal; no tenderness Left lower extremity: normal to inspection Psych: Mental Status: mental status grossly normal DS: Data Data Completed and Pending Labs on day of discharge: Labs from last 24 hours 05/10/22 05/10/22 05/09/22 05:28 05:28 09:28 WBC 11.7 H RBC 4.08 L Hgb 11.4 L Hct 35.8 L MCV 87.7 MCH 27.9 MCHC 31.8 L RDW 13.2 Plt Count 243 MPV 10.1 Immature Gran % (Auto) 0.3 Neut % (Auto) 81.6 H Lymph % (Auto) 12.4 L Butts % (Auto) 5.5 Eos % (Auto) 0.1 Baso % (Auto) 0.1 L Lymph # (Auto) 1.45 Butts # (Auto) 0.6 Eos # (Auto) 0.0 Baso # (Auto) 0.0 Abs Immat Gran (auto) 0.04 H Absolute Neuts (auto) 9.6 H Absolute Nucleated RBC 0.0 Nucleated RBC % 0.0 Sodium 136 L Potassium 4.3 Chloride 105 Carbon Dioxide 24 Anion Gap 7 L BUN 13 Creatinine 0.70 Estim Creat Clear Calc 106 Estimated GFR > 60 Glucose 120 H Calcium 7.8 L Blood Type O Positive Antibody Screen Negative Discharge Plan Discharge Patient Disposition: Home Health Service Discharge Instructions: Post Op Total Knee Replacement Instructions Dr. Kal Bourne [phone] Your dressing will be changed prior to your discharge. You will be sent home with one additional dressing to be changed on post op day 7 by the home health RN.
[2022-05-10] MEDS: hydroCHLOROthiazide 12.5 MG CAPSULE PO (09:55)
[2022-05-10] MEDS: lisinopriL 10 MG TABLET PO (09:56)
[2022-05-10 10:29] VITALS: BP 125/67; PULSE 77; RESP 16; TEMP 36.4; O2SAT 95
== END 2022-05-10 14:05 | disposition home health service (06) ==
LOC: ANHSURGERY 09:04 → ANH2MED 17:14
PROVIDERS: PCP Family Medicine; Visit Provider Orthopaedic Surgery
PROC: (CPT 27447; principal; 2022-05-09 11:00)
DX: M17.0 Bilateral primary osteoarthritis of knee (principal); G89.18 Other acute postprocedural pain; M19.90 Unspecified osteoarthritis, unspecified site; I10 Essential (primary) hypertension; G47.33 Obstructive sleep apnea (adult) (pediatric); Z87.891 Personal history of nicotine dependence
CPT/HCPCS: 64447; 27447; 20610; 36415; 73560; 80048; 85025; 86850; 86900; 86901; 97110; 97116; 97161; 97165; A9270; C1713; C1776; J0171; J0330; J0690; J1040; J1100; J1885; J2250; J2270; J2704; J2795; J3010; J7030; J7120

== ENCOUNTER 2023-04-10 11:06 | Emergency (ER) | payer BC, SELFPAY ==
[2023-04-10 11:12] VITALS: BP 143/77; PULSE 82; RESP 16; TEMP 36.5; O2SAT 100
--- NOTE | 2023-04-10 11:40 | ED.MALEGU ---
HPI - Male Genitourinary General Chief complaint: Abdominal Pain Stated complaint: LOW ABD PAIN/TESTICLE PAIN Time Seen by Provider: 04/10/23 11:40 Source: patient, RN notes reviewed and old records reviewed Mode of arrival: ambulatory Limitations: no limitations History of Present Illness HPI Narrative: 52 year old male presents to express care with complaints of being awakened this morning with lower abdominal pain radiating to his right testicle and also having some burning with urination. Patient reports that his is taking Flagyl for what he believes is a yeast infection and they had intercourse last night. Patient has no right lower abdominal pain on examination reports no pain to testicles on examination, no swelling noted, cremasteric reflex is present to bilateral testes. Patient is not circumcised and has no lesions or any drainage from penis noted. Patient has not taken anything for his discomfort OTC. Patient wishes urine sent for STD evaluation, denies any known exposure. MD Complaint: dysuria and other (lower abdominal discomfort this morning and right testicle discomfort posterior region) Onset (ago): hour(s) (0800) Duration: improved Severity scale (1-10): 4 Quality: aching Associated symptoms: Reports other (burning with urination) Related Data Sexually active: Yes Home Medications Medication Instructions Recorded Confirmed lisinopril 10 1 tablet PO QAM 05/30/21 04/10/23 mg-hydrochlorothiazide 12.5 mg tablet naproxen sodium 220 mg capsule 440 mg PO BID PRN Pain 05/30/21 04/10/23 (Aleve) multivitamin 1 tablet PO DAILY 04/25/22 04/10/23 Allergies Allergy/AdvReac Type Severity Reaction Status Date / Time No Known Allergies Allergy Verified 04/10/23 11:27 Review of Systems Review of Systems: CONSTITUTIONAL: Denies fever, chills, or sweats. CARDIOVASCULAR: Denies chest pain, palpitations, or edema. RESPIRATORY: Denies cough or dyspnea. GASTROINTESTINAL: lower middle abdominal pain, no nausea, vomiting, or diarrhea. GENITOURINARY: Reports dysuria,no frequency, or urgency. Denies flank pain or hematuria.reports some discomfort to lower middle abdomen reported right posterior testicle pain this morning but reports that discomfort is decreased, no penis drainage or lesions SKIN: Denies rash or itching. MUSCULOSKELETAL: Denies back pain or myalgia. Denies CVA tenderness NEUROLOGIC: Denies headache All systems reviewed & are unremarkable except as noted in HPI and below PMFSH Past Medical History Medical History Arthritis Hypertension Kidney stones Left knee DJD Left knee pain KEYSHAWN (obstructive sleep apnea) Right knee pain Wears glasses Weight gain Surgical History Surgical History History of ankle fusion History of surgery on right wrist S/P total knee arthroplasty Family History Family History Other Cancer Heart disease Hypertension Social History Social History Smoking packs per day: 1 Smoking cigarettes per day: 20.0 Years smoked: 22 Smoking pack-years: 22.00 Smoking status: Former smoker Tobacco type: cigarettes Smoking end date: 05/25/08 Additional smoking assessment comments: SMOKING PACK YEARS-19 PER PT Alcohol intake: never Substance use: never Living arrangements: with family Additional living arrangements comments: & CHILDREN Occupation/Education: occupation Gender identity (if verbalized by the patient): Male Spiritual care concerns: Yes (Hindu) Comments At time of signature, agree with nursing past medical, surgical, social and family history. There is no relevant family history pertinent to the presenting complaint Exam Narrative: GENERAL: Well-appearing, well-nourished, and in no acute
== END 2023-04-10 12:08 | disposition home or self-care (01) ==
PROVIDERS: Emergency Provider Registered Nurse; PCP Family Medicine
DX: R30.0 Dysuria (principal); Z11.3 Encounter for screening for infections with a predominantly sexual mode of transmission; M19.90 Unspecified osteoarthritis, unspecified site; I10 Essential (primary) hypertension; M17.12 Unilateral primary osteoarthritis, left knee; Z87.891 Personal history of nicotine dependence
CPT/HCPCS: 81003; 87086; 87088; 87491; 87591; 87661; 99213; G0463

== ENCOUNTER 2025-10-07 08:05 | Emergency (ER) | payer BC, SELFPAY ==
--- NOTE | 2025-10-07 08:07 | ED_ITS ---
HPI - Abdominal Pain General Chief Complaint: Abdominal Pain Stated Complaint: BLOOD IN STOOL Source: patient and RN notes reviewed Mode of arrival: ambulatory Limitations: no limitations History of Present Illness HPI narrative: Patient is a 55-year-old male who presents to the [facility] with complaints of blood in his stool. Patient states that last night he had a relatively hard stool and noted dark red blood. Patient states that he woke up around 530 this morning and had an episode of loose stool with dark and bright red blood noted. He does report medial abdominal cramping that is intermittent. Endorses abdominal tenderness. Denies any nausea or vomiting. Denies recent fever. Reports past medical history of hypertension; does not take any blood thinners. Related Data Home Medications ?Medication ?Instructions ?Recorded ?Confirmed ?Last Taken ?Type lisinopril 10 1 tablet PO QAM 05/30/2105/08/22 History mg-hydrochlorothiazide 12.5 mg tablet naproxen sodium 220 mg capsule 440 mg PO BID PRN Pain 05/30/21 05/16/23 05/02/22 History (Aleve) Held on 05/10/22. Instructions: Resume on 05/31/22. multivitamin 1 tablet PO DAILY 04/25/22 0 05/16/23 05/02/22 History ezetimibe 10 mg tablet mg 10/07/25 Unknown History Allergies Allergy/AdvReac Type Severity Reaction Status Date / Time No Known Allergies Allergy Verified 10/07/25 08:14 Review of Systems Review of Systems: CONSTITUTIONAL: Denies fever, chills, or sweats. EYES: Denies visual changes, redness, or discharge. ENT: Denies otalgia and sore throat CARDIOVASCULAR: Denies chest pain, palpitations, or edema. RESPIRATORY: Denies cough or dyspnea. GASTROINTESTINAL: Reports abdominal pain and blood in stool. GENITOURINARY: Denies dysuria or hematuria. SKIN: Denies rash or itching. MUSCULOSKELETAL: Denies back pain, joint pain, or myalgia. NEUROLOGIC: Denies headache, numbness, or weakness. Pertinent positives per HPI. [facility] Past Medical History Medical History Left knee DJD Right knee pain Hypertension Arthritis Kidney stones Wears glasses Weight gain [place]SHAWN (obstructive sleep apnea) Left knee pain Surgical History Surgical History S/P total knee arthroplasty History of surgery on right wrist History of ankle fusion Family History Family History Other Cancer Heart disease Hypertension Social History Social History Smoking packs per day: 1 Smoking cigarettes per day: 20.0 Years smoked: 22 Smoking pack-years: 22.00 Tobacco type: cigarettes Smoking end date: 05/25/08 Additional smoking assessment comments: SMOKING PACK YEARS-19 PER PT Alcohol intake: never Substance use: never Living arrangements: with family Additional living arrangements comments: & CHILDREN Occupation/Education: occupation Gender identity (if verbalized by the patient): Male Spiritual care concerns: Yes (Mormon) Comments At the time of my signature, I reviewed and agree with the nursing past medical, surgical, social, and family history. There is no relevant family history pertinent to the patient complaint. Exam Narrative: GENERAL: This is a well-nourished, well-developed patient, in no apparent distress. HEAD: normocephalic, atraumatic. EYES: Sclera clear/white. Vision is grossly intact. EARS: External ears normal. Hearing grossly intact. NOSE: External nose normal with no obvious nasal discharge, nares without redness, no rhinorrhea. THROAT: Mucous membranes moist, posterior pharynx clear. NECK: Neck supple, non-tender without lymphadenopathy, masses or thyromegaly. CARDIOVASCULAR: Regular rate and rhythm without murmurs, gallops, or rubs. RESPIRATORY: Clear to auscultation. Breath sounds equal bilaterally. No wheezes, rales, or rhonchi. GASTROINTESTINAL: Generalized abdominal tenderness. SKIN: warm, intact with no suspicious lesions or rash, good texture and turgor. NEURO: awake, alert, and oriented to person, place and time. There were no obvious focal neurologic abnormalities. Course Course Level of Care: Express Care Visit Vital Signs Vital signs: Vital Signs Temperature 97.2 F L 10/07/25 08:16 Pulse Rate 73 10/07/25 08:16 Respiratory Rate 16 10/07/25 08:16 Blood Pressure 137/83 10/07/25 08:16 Pulse Oximetry 100 10/07/25 08:16 Temperature 97.2 F L 10/07/25 08:16 Pulse Rate 73 10/07/25 08:16 Respiratory Rate 16 10/07/25 08:16 Blood Pressure 137/83 10/07/25 08:16 Pulse Oximetry 100 10/07/25 08:16 Reviewed Transfer Transfered to: [facility] Transportation: Other (Private vehicle) Transfer rationale: Blood in stool/abdominal pain. Appropriate testing and treatment. Accepting physician: MD Bonilla MDM - Abdominal Pain MDM Narrative Medical decision making narrative: Patient presents to the [facility] with complaints of blood in stool and abdominal pain. He will be transferred to [facility] ED for appropriate testing and treatment related to patient's complaint. Report given to MD Bonilla, who has accepted patient for transfer. Patient will be transferred via private vehicle with spouse. Differential Diagnosis Differential diagnosis: Likely other (GI bleed, internal hemorrhoid, diverticulitis, colitis) Critical Care Time Critical Care Time Critical Care Time: No Discharge Plan Discharge Clinical Impression: Blood in stool Patient Disposition: Acute Care Hospital Condition: Stable Additional Instructions: Go directly to [facility] ED for evaluation. Patient Language: Romansh Prescriptions: No Action ezetimibe 10 mg tablet ciprofloxacin HCl 500 mg tablet 500 mg PO Q12H Qty: 7 0RF multivitamin Tablet 1 tablet PO DAILY lisinopril-hydrochlorothiazide 10-12.5 mg Tablet 1 tablet PO QAM naproxen sodium [Aleve] 220 mg Capsule 440 mg PO BID PRN (Reason: Pain) Follow-up/Referrals: PHYSICIAN,[employer]PER[employer] [Primary Care Provider, Internal Medicine] Time of Disposition: 08:20
[2025-10-07 08:16] VITALS: BP 137/83; PULSE 73; RESP 16; TEMP 36.2; O2SAT 100
== END 2025-10-07 08:25 | disposition short-term general hospital (02) ==
PROVIDERS: Emergency Provider Nurse Practitioner
DX: K92.1 Melena (principal); I10 Essential (primary) hypertension; M19.90 Unspecified osteoarthritis, unspecified site; M17.12 Unilateral primary osteoarthritis, left knee; Z87.891 Personal history of nicotine dependence
CPT/HCPCS: 99212; G0463

== ENCOUNTER 2025-10-07 08:50 | Emergency (ER) | payer BC, SELFPAY ==
--- OUTSIDE RECORDS SUMMARY | 2025-05-19 02:45 | XMS_ITS ---
Author Organization [facility] Address [address] [place] [address] Care Team Providers Care Traveling Phlebotomist Name Role Phone Ham Wallace Unavailable REASON FOR VISIT Coloplast- IPP Removal/Replacement Encounters Encounter Location Date Provider Diagnosis [address] [place] [address] 05/19/2025 Ham Frederick Plan Of Treatment No Information Progress Notes * Berenice ORANTESoDOB: [birth year] (55 yo M)Acc No.[id number]:05/19/2025 Patient: Pranay GUTIÉRREZ Provider: Rayshawn Frederick :1970 A ge:54 Y S ex:Male Date:05/19/2025 Address:[address] [place], [place] [id number] * Billing Information: * Visit Code: * Procedure Codes: * Electronic signature of Sonny Frederick MD on 10/07/2025 at 09:05 AM POCKET CLOSER Sign off status: Pending * Provider: Rayshawn Frederick Date: 0 05/19/2025 Generated for Zeferino aragon/Sidney/eTransmitting on: 1 12/07/2024 09:05 AM POCKET CLOSER
--- OUTSIDE RECORDS SUMMARY | 2025-07-05 02:15 | XMS_ITS ---
Author Organization [facility] Address [address] [place] [address] Care Team Providers Care Account Specialist Name Role Phone Ham Wallace Unavailable REASON FOR VISIT post-operative Encounters Encounter Location Date Provider Diagnosis [facility] [address] [place] [address] 07/05/2025 Ham Frederick Plan Of Treatment No Information Progress Notes * ROLANDABereniceoDOB: [birth year] (55 yo M)Acc No.[id number]:07/05/2025 TELEHEALTH POST OP Patient: Pranay GUTIÉRREZ Provider: Rayshawn Frederick :1970 A ge:55 Y S ex:Male Date:07/05/2025 Address:[address] [place], [place] [id number] Subjective: * Chief Complaints: * 1 . Post-operative. * Medical History: Objective: * Vitals: Assessment: Plan: * Treatment: * Billing Information: * Visit Code: * Procedure Codes: * Electronic signature of Sonny Frederick MD on 10/07/2025 at 09:05 AM MGMT CONSULTANT Sign off status: Pending * Provider: Rayshawn Frederick Date: 0 07/05/2025 Generated for Zeferino aragon/Sidney/Marko on: 1 12/07/2024 09:05 AM MGMT CONSULTANT
--- NOTE | ~2025-10-07 | CT_ITS ---
PROCEDURE: [Procedure] INDICATION: RLQ pain COMPARISON(S): None. TECHNIQUE: Multiplanar images of the abdomen and pelvis were obtained with intravenous contrast solution.. Diagnostic sensitivity is limited due to lack of oral contrast. Dose lowering technique and dose optimization was utilized. FINDINGS: Inferior thorax: No significant abnormality is seen. Liver: Fatty infiltrated and mildly enlarged. Gallbladder: The gallbladder is present. There are no radiopaque gallstones. Pancreas: Within normal limits. Spleen: Normal in size and appearance. Adrenal glands: There are no masses seen. Kidneys: There is no hydronephrosis seen on either side. No urinary tract stones are seen. Small bilateral probable cysts. GI tract: There is no evidence of bowel obstruction. There is marked diverticulosis of the sigmoid without evidence of diverticulitis. The appendix is seen and appears normal. Major vessels: The major vessels are normal in caliber. Sex specific pelvic organs: There is a penile prosthesis. Bladder: The bladder appears normal. Bones: Within normal limits for the patient's age. In the right lower quadrant, there is a fluid-filled structure which is associated with the tube into the penile prosthesis. This is consistent with the reservoir. It is anterior to the musculature in the right lower quadrant. IMPRESSION: No acute abnormality is seen. Reviewed, dictated and finalized at location A. ENGINEER
[2025-10-07 09:06] VITALS: BP 140/76; PULSE 73; RESP 16; TEMP 36.8; O2SAT 99
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
--- OUTSIDE RECORDS SUMMARY | 2025-10-07 09:06 | XMS_ITS | Encounter Summary ---
Author Organization [facility] Address [address] [place] [address] Care Team Providers Care Customer Service Representative Teacher Name Role Phone Unavailable Primary Care Provider Unavailabl e Encounter Details Date Type Department Care Team (Late st Contact Info) Description 12/24/2019 Lab Requisition [facility] DermPath Lab [address] [facility] [place] [phone] Saniya Knox DO [address] [facility] 3 [place] [address] Social History Tobacco Use Types Packs/Day Years Used Date Smoking Tobacco: Never Assessed Sex and Gender Information Value Date Recorded Sex Assigned at Not on file Legal Sex Male 3:29 PM EASEMENT MAN Gender Identity Not on file Sexual Orientation Not on file documented as of this encounter Plan of Treatment Not on file documented as of this encounter Procedures Procedure Name Priority Date/Time Associated Diagnosis Comments DERMATOPATHOLOGY Routine 12/23/2019 12:0 0 AM EASEMENT MAN documented in this encounter Results * DERMATOPATHOLOGY (12/23/2019 12:00 AM EASEMENT MAN) Case Report Dermatopathology Report Case: [id number] Authorizing Provider: Saniya Knox DO Collected: 12/23/2019 12:00 AM Ordering Location: [facility] DermPath Lab Received: 12/24/2019 01:21 PM Pathologist: Mary Kate Bryant MD Specimen: Skin, right 2nd toenail 0 1:04 PM EASEMENT MAN DERMATOPATHOLOGY LABORATORY Final Diagnosis Specimen A. SKIN, right 2nd toenail: ONYCHOMYCOSIS (B35.1) 0 1:04 PM EASEMENT MAN DERMATOPATHOLOGY LABORATORY at 1304 EASEMENT MAN Clinical History R/O onychomycosis, clipping. 0 1:04 PM EASEMENT MAN DERMATOPATHOLOGY LABORATORY Gross Description Specimen A: Received is one formalin filled container labeled with the patient's name and designated right 2nd toenail. The specimen consists of a nail clipping measuring [id number], 9r0z4ke, 5i2p0sv, 5j3y2ep, & 6j5s7qw. 0 1:04 PM [facility] DERMATOPATHOLOGY LABORATORY Microscopic Description Specimen A. SKIN, right 2nd toenail: Sections show nail plate. Fungal hyphae are present on Periodic acid-Joe (PAS) stained sections. 0 1:04 PM [facility] DERMATOPATHOLOGY LABORATORY Disclaimer An external and internal positive and negative controls are appropriate for the histochemical, immunohistochemical and immunofluorescence stain(s) in this case (if any), except where stated explicitly. The performance characteristics of the stain(s) cited in this report were developed and its performance characteristic determined by the Dermatopathology Laboratory at [facility], directed by Dr. Sukhdeep Garcia. These tests need not be, and therefore are not, approved by the [place] Food and Drug Administration. The tests are used for clinical purposes. Billing Codes Specimen Charges Stain Charges 68836 1 67311 1 0 1:04 PM EASEMENT MAN DERMATOPATHOLOGY LABORATORY Embedded Images 0 1:04 PM [facility] DERMATOPATHOLOGY LABORATORY Pathology/Cytolog y TISSUE SPECIMEN FROM SKIN / Unknown 12/23/2019 12/24/2019 1:21 PM EASEMENT MAN us Saniya Knox DO LAB - PATHOLOGY/CYTOLOGY ORDERABLES Final Result DERMATOPATHOLOGY LABORATORY [facility] - Department of Dermatology [address] [place] [address], [address]th [place] [address], [facility] [phone] documented in this encounter Visit Diagnoses Not on filedocumented in this encounter
--- OUTSIDE RECORDS SUMMARY | 2025-10-07 09:06 | XMS_ITS | Clinical Summary ---
Author Organization [facility] Address [address] [place] [address] Care Team Providers Care Fur Feeder Name Role Phone No, Physician Primary Care Provider Allergies No known active allergies Medications papaverine-phento fermín-alprostadi l (TRIMIX) solution injectionIndicati ons:Erectile dysfunction due to arterial insufficiency 0.15 mL by intracavernosal route once for 1 dose 5 mL 11 04/17/20 23 Active Active Problems No known active problems Social History Tobacco Use Types Packs/Day Years Used Date Smoking Tobacco: Unknown Personal Safety Answer Date Recorded Getting School Help Needed Not on file 02/08 Sex and Gender Information Value Date Recorded Sex Assigned at Not on file 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
--- OUTSIDE RECORDS SUMMARY | 2025-10-07 09:06 | XMS_ITS | Clinical Summary ---
Author Organization [facility] Address [address] [place] [address] Care Team Providers Care Manager Intensive Care Name Role Phone Unavailable Primary Care Provider Unavailabl e Source Comments [facility],non-owned Affiliates and Associated Physician Practices is amultiple site organization consisting of ambulatory clinics and hospital sitesin [place], [place], [place] and [place]. This disclosure is being madepursuant to the Care Everywhere program and may not contain all information available regarding this patient. 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 Gender Identity Not on file Sexual Orientation Not on file Plan of Treatment Health Maintenance Due Date Last Done Comments COLOGUARD (AGES 45-75) - COL ON CA SCREENING 1968 COLON MONITORING 1968 COLONOSCOPY - COLON CA SCREENING 1968 CT COLONOGRAPHY - COLON CA SCREENING 1968 Colorectal Cancer Screening 1968 FIT - COLON CA SCREENING 1968 FLEX SIG - COLON CA SCREENING 1968 LIPID TESTING 1968 HIV SCREENING 1983 HEPATITIS C SCREENING 05/24/1986 DTAP/TDAP/TD VACCINES (1 - Tdap) 1987 HEPATITIS B VACCINE (1 of 3 - 19+ 3-dose series) 1987 PNEUMOCOCCAL VACCINE 50+ (1 of 1 - PCV) 2018 ZOSTER VACCINE (1 of 2) 2018 DEPRESSION SCREENING 11/25/2024 COVID-19 VACCINE (1 - 2023-2 5 season) 2025 INFLUENZA VACCINE (#1) 2025 HIB VACCINE Aged Out No longer eligi ble based on patient's age to complete this topic HPV VACCINE Aged Out No longer eligi ble based on patient's age to complete this topic MENINGOCOCCAL (Group B) VACC INE SHARED DECISION-MAKING Aged Out No longer eligibl e based on patient's age to complete this topic MENINGOCOCCAL GROUPS A/C/Y/W VACCINE Aged Out No longer eligible b ased on patient's age to complete this topic Insurance
[2025-10-07 09:51] VITALS: BP 131/88; PULSE 73; RESP 14; O2SAT 99
[2025-10-07 10:30] LABS: Hematocrit 38.5 % (42.0-52.0); Hemoglobin 12.5 g/dL (14.0-18.0); Immature Granulocyte Percent A 0.4 % (0-0.5); Lymphocytes Absolute Auto 2.55 K/mm3 (0.9-3.2); Mean Corpuscular HGB Conc 32.5 g/dl (32-36); Mean Corpuscular Hemoglobin 28.5 pg (26-34); Mean Corpuscular Volume 87.9 fl (80-100); Nucleated Red Blood Cells Absolute Auto 0.000 K/mm3 (0.0-0.012); Nucleated Red Blood Cells Perc 0.0 % (0.0-0.2); Platelet Count Result 244 k/mm3 (150-375); Red Blood Count 4.38 M/mm3 (4.6-6.20); White Blood Count 9.2 K/mm3 (4.5-10.0)
[2025-10-07 10:41] LABS: INR 1.0; Prothrombin Time 13.3 Seconds (11.1-14.7)
[2025-10-07 10:42] LABS: Partial Thromboplastin Time 28.6 Seconds (22.3-36.8)
[2025-10-07 10:50] LABS: Alanine Aminotransferase 34 U/L (6-50); Albumin Level 3.8 g/dL (3.5-5.1); Alkaline Phosphatase 134 U/L (38-126); Anion Gap 6 mmol/L (4-12); Aspartate Amino Transferase 22 U/L (17-59); Bilirubin,Total 0.6 mg/dL (0.2-1.3); Blood Urea Nitrogen 13 mg/dL (9-20); Calcium 8.7 mg/dL (8.4-10.2); Carbon Dioxide 25 mmol/L (22-30); Chloride 106 mmol/L (98-107); Estimated CRCL calculation 93 ml/min; Estimated Glomerular Filt Rate > 60; Glucose 109 mg/dL (65-110); Potassium 4.1 mmol/L (3.4-5.0); Sodium 137 mmol/L (137-145); Total Protein 7.2 g/dL (6.3-8.2)
[2025-10-07] MEDS: PANTOPRAZOLE SODIUM IV 40 MG VIAL IV PUSH (10:59)
[2025-10-07] MEDS: SODIUM CHLORIDE 0.9% IV 1,000 ML 999 ML IV CONT (10:59)
--- OUTSIDE RECORDS SUMMARY | 2025-10-07 11:14 | XMS_ITS | Encounter Summary ---
Author Organization [facility] Address [address] [place] [address] Care Team Providers Care Weasand Trimmer Name Role Phone Unavailable Primary Care Provider Unavailabl e Encounter Details Date Type Department Care Team (Late st Contact Info) Description 12/24/2019 Lab Requisition [facility] DermPath Lab [address] [facility], [place] [phone] Saniya Knox DO [address] [facility] [address] [place] [address] Social History Tobacco Use Types Packs/Day Years Used Date Smoking Tobacco: Never Assessed Sex and Gender Information Value Date Recorded Sex Assigned at Not on file Legal Sex Male 3:29 PM PATTERN HAND Gender Identity Not on file Sexual Orientation Not on file documented as of this encounter Plan of Treatment Not on file documented as of this encounter Procedures Procedure Name Priority Date/Time Associated Diagnosis Comments DERMATOPATHOLOGY Routine 12/23/2019 12:0 0 AM PATTERN HAND documented in this encounter Results * DERMATOPATHOLOGY (12/23/2019 12:00 AM PATTERN HAND) Case Report Dermatopathology Report Case: [id number] Authorizing Provider: Saniya Knox DO Collected: 12/23/2019 12:00 AM Ordering Location: [facility] DermPath Lab Received: 12/24/2019 01:21 PM Pathologist: Mary Kate Bryant MD Specimen: Skin, right 2nd toenail 0 1:04 PM PATTERN HAND DERMATOPATHOLOGY LABORATORY Final Diagnosis Specimen A. SKIN, right 2nd toenail: ONYCHOMYCOSIS (B35.1) 0 1:04 PM PATTERN HAND DERMATOPATHOLOGY LABORATORY at 1304 PATTERN HAND Clinical History R/O onychomycosis, clipping. 0 1:04 PM PATTERN HAND DERMATOPATHOLOGY LABORATORY Gross Description Specimen A: Received is one formalin filled container labeled with the patient's name and designated right 2nd toenail. The specimen consists of a nail clipping measuring [id number], 3d6h9df, 0l5y8dl, 6h8m9jx, & 8z3r4lb. 0 1:04 PM [facility] DERMATOPATHOLOGY LABORATORY Microscopic Description Specimen A. SKIN, right 2nd toenail: Sections show nail plate. Fungal hyphae are present on Periodic acid-Joe (PAS) stained sections. 0 1:04 PM [facility] DERMATOPATHOLOGY LABORATORY Disclaimer An external and internal positive and negative controls are appropriate for the histochemical, immunohistochemical and immunofluorescence stain(s) in this case (if any), except where stated explicitly. The performance characteristics of the stain(s) cited in this report were developed and its performance characteristic determined by the Dermatopathology Laboratory at [facility], directed by Dr. Sukhdeep Garcia. These tests need not be, and therefore are not, approved by the [place] Food and Drug Administration. The tests are used for clinical purposes. Billing Codes Specimen Charges Stain Charges 10267 1 24811 1 0 1:04 PM PATTERN HAND DERMATOPATHOLOGY LABORATORY Embedded Images 0 1:04 PM [facility] DERMATOPATHOLOGY LABORATORY Pathology/Cytolog y TISSUE SPECIMEN FROM SKIN / Unknown 12/23/2019 12/24/2019 1:21 PM PATTERN HAND us Saniya Knox DO LAB - PATHOLOGY/CYTOLOGY ORDERABLES Final Result DERMATOPATHOLOGY LABORATORY [facility] - Department of Dermatology [address] [place] [address], [address] [place] [address], [facility] [phone] documented in this encounter Visit Diagnoses Not on filedocumented in this encounter
--- OUTSIDE RECORDS SUMMARY | 2025-10-07 11:14 | XMS_ITS | Clinical Summary ---
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
--- OUTSIDE RECORDS SUMMARY | 2025-10-07 11:14 | XMS_ITS | Clinical Summary ---
Author Organization [facility] Address [address] [address] Care Team Providers Care Receivable Manager Name Role Phone Unavailable Primary Care Provider Unavailabl e Source Comments [facility],non-owned Affiliates and Associated Physician Practices is amultiple site organization consisting of ambulatory clinics and hospital sitesin [place], [place], [place] and [place]. This disclosure is being madepursuant to the Care Everywhere program and may not contain all information available regarding this patient. 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
[2025-10-07 11:41] VITALS: BP 142/75; PULSE 70; RESP 14; O2SAT 100
--- NOTE | 2025-10-07 12:44 | ED.GIBLEED ---
HPI - GI Bleed General Chief complaint: GI Bleed Stated complaint: blood in stool Time Seen by Provider: 10/07/25 09:49 History of Present Illness HPI Narrative: patient is a 55-year-old male who presents ER with blood in his stool. Dark black last night with some occasional bright red blood. Today he is having diarrhea that has bright red blood. He is not on any blood thinning medications. Denies any habitual use of NSAIDs. no syncope or lightheadedness. No fevers or chills or sweats. No chest pain. Mild acid reflux. No history of EGD or colonoscopy. Related Data Home Medications ?Medication ?Instructions ?Recorded ?Confirmed ?Last Taken ?Type lisinopril 10 1 tablet PO QAM 05/30/21 10/07/25 05/08/22 History mg-hydrochlorothiazide 12.5 mg tablet naproxen sodium 220 mg capsule 440 mg PO BID PRN Pain 05/30/21 05/16/23 05/02/22 History (Aleve) Held on 05/10/22. Instructions: Resume on 05/31/22. multivitamin 1 tablet PO DAILY 04/25/22 05/16/23 05/02/22 History ezetimibe 10 mg tablet mg 10/07/25 Unknown History Allergies Allergy/AdvReac Type Severity Reaction Status Date / Time No Known Allergies Allergy Verified 10/07/25 09:09 Review of Systems Review of Systems: All systems reviewed & are unremarkable except as noted in HPI and below Constitutional: Constitutional: Reports no additional constitutional complaints ENT: Reports system reviewed and no additional complaints, except as documented Cardiovascular: Cardiovascular: Reports no additional cardiovascular complaints Respiratory: Respiratory: Reports no additional respiratory complaints Gastrointestinal: Gastrointestinal: Reports no additional gastrointestinal complaints [facility] Past Medical History Medical History (Updated 10/07/25 @ 12:54 by Aubrey Crystal MD) Left knee DJD Right knee pain Hypertension Arthritis Kidney stones Wears glasses Weight gain KEYSHAWN (obstructive sleep apnea) Left knee pain Surgical History Surgical History (Updated 10/07/25 @ 12:46 by Aubrey Crystal MD) History of implantation of penile prosthesis S/P total knee arthroplasty History of surgery on right wrist History of ankle fusion Family History Family History Other Cancer Heart disease Hypertension Social History Social History Smoking packs per day: 1 Smoking cigarettes per day: 20.0 Years smoked: 22 Smoking pack-years: 22.00 Smoking status: Former smoker Tobacco type: cigarettes Smoking end date: 05/25/08 Additional smoking assessment comments: SMOKING PACK YEARS-19 PER PT Alcohol intake: never Substance use: never Living arrangements: with family Additional living arrangements comments: & CHILDREN Occupation/Education: occupation Gender identity (if verbalized by the patient): Male Spiritual care concerns: Yes (Gnosticist) Exam Narrative: GENERAL: Well-appearing, well-nourished, and in no acute distress. HEAD: Normocephalic, atraumatic. ENT: Mucous membranes moist. CHEST: Clear to auscultation. No respiratory distress. HEART: Regular rate and rhythm. Normal peripheral pulses. ABDOMEN: Soft, Mild tenderness right lower quadrant, nondistended, normal active bowel sounds. EXTREMITIES: Normal range of motion. No edema. SKIN: Warm, dry, no rash. NEURO: Alert and oriented x3. PSYCH: Normal mood and affect. Course Course Emergency Course: patient resting comfortably. Informed of results. Discussed with GI, Dr. Sim Vega. will place on twice a day PPI and follow-up outpatient. Bleeding precautions given. CT without diverticulitis or colitis. Vital Signs Vital signs: Vital Signs Temperature 98.3 F 10/07/25 09:06 Pulse Rate 73 10/07/25 09:06 Respiratory Rate 16 10/07/25 09:06 Blood Pressure 140/76 10/07/25 09:06 Pulse Oximetry 99 10/07/25 09:06 Temperature 98.3 F 10/07/25 09:06 Pulse Rate 70 10/07/25 11:41 Respiratory Rate 14 10/07/25 11:41 Blood Pressure 142/75 H 10/07/25 11:41 Pulse Oximetry 100 10/07/25 11:41 Oxygen Delivery Room Air 10/07/25 09:51 MDM - GI Bleed Lab Data Attestation: I reviewed the patient's lab results. 10/07/25 10:23 10/07/25 10:23 Labs: Lab Results 10/07/25 Range/Units 10:23 WBC 9.2 (4.5-10.0) K/mm3 RBC 4.38 L (4.6-6.20) M/mm3 Hgb 12.5 L (14.0-18.0) g/dL Hct 38.5 L (42.0-52.0) % MCV 87.9 (80-100) fl MCH 28.5 (26-34) pg MCHC 32.5 (32-36) g/dl RDW 13.2 (11.5-14.5) % Plt Count 244 (150-375) k/mm3 MPV 9.9 (7.4-10.4) fl Immature Gran % (Auto) 0.4 (0-0.5) % Neut % (Auto) 63.2 (45.5-73.1) % Lymph % (Auto) 27.7 (18.3-44.2) % [place] % (Auto) 5.5 (2.6-8.5) % Eos % (Auto) 3.0 (0-4.4) % Baso % (Auto) 0.2 (0.2-1.2) % Lymph # (Auto) 2.55 (0.9-3.2) K/mm3 [place] # (Auto) 0.5 (0.1-0.6) K/mm3 Eos # (Auto) 0.3 (0-0.3) K/mm3 Baso # (Auto) 0.0 (0.0-0.1) K/mm3 Abs Immat Gran (auto) 0.04 H (0.00-0.031) K/mm3 Absolute Neuts (auto) 5.8 (1.3-6.7) K/mm3 Absolute Nucleated RBC 0.000 (0.0-0.012) K/mm3 Nucleated RBC % 0.0 (0.0-0.2) % PT 13.3 (11.1-14.7) Seconds INR 1.0 APTT 28.6 (22.3-36.8) Seconds Sodium 137 (137-145) mmol/L Potassium 4.1 (3.4-5.0) mmol/L Chloride 106 (98-107) mmol/L Carbon Dioxide 25 (22-30) mmol/L Anion Gap 6 (4-12) mmol/L BUN 13 (9-20) mg/dL Creatinine 0.78 (0.7-1.3) mg/dL Estim Creat Clear Calc 93 ml/min Estimated GFR > 60 (59 - ) Glucose 109 (65-110) mg/dL Calcium 8.7 (8.4-10.2) mg/dL Total Bilirubin 0.6 (0.2-1.3) mg/dL AST 22 (17-59) U/L ALT 34 (6-50) U/L Alkaline Phosphatase 134 H (38-126) U/L Total Protein 7.2 (6.3-8.2) g/dL Albumin 3.8 (3.5-5.1) g/dL Imaging Data Attestation: I personally reviewed and interpreted this imaging study as follows: Radiologist's impression: ITS Impressions Abdomen/Pelvis CT 10/07/25 11:19 IMPRESSION: No acute abnormality is seen. Discharge Plan Discharge Clinical Impression: Rectal bleeding, GERD (gastroesophageal reflux disease) Patient Disposition: Home Condition: Stable Instructions: Rectal Bleeding (ED), GERD (Gastroesophageal Reflux Disease) (ED) Additional Instructions: Return to the emergency department if you develop severe abdominal pain, severe nausea and vomiting to the point where you are unable to keep down fluids, if you develop chest pain or difficulty breathing, blood in your stool, dizziness or fainting, or if you develop any other new or concerning symptoms as these could be signs of more serious medical illness. Try to stay well hydrated. Patient Language: Turkmen Prescriptions: New pantoprazole 40 mg tablet,delayed release (DR/EC) 40 mg PO BID Qty: 30 0RF No Action ezetimibe 10 mg tablet ciprofloxacin HCl 500 mg tablet 500 mg PO Q12H Qty: 7 0RF multivitamin Tablet 1 tablet PO DAILY lisinopril-hydrochlorothiazide 10-12.5 mg Tablet 1 tablet PO QAM naproxen sodium [Aleve] 220 mg Capsule 440 mg PO BID PRN (Reason: Pain) Follow-up/Referrals: PHYSICIAN,FORENSIC ENGINEER [Primary Care Provider, Internal Medicine] Brandon Gonzales MD [Physician, Gastroenterology] - 1 Week
[2025-10-07 13:09] VITALS: BP 127/81; PULSE 69; RESP 17; O2SAT 100
== END 2025-10-07 13:10 | disposition home or self-care (01) ==
PROVIDERS: Emergency Provider Emergency Medicine
DX: K62.5 Hemorrhage of anus and rectum (principal); K21.9 Gastro-esophageal reflux disease without esophagitis; I10 Essential (primary) hypertension; M17.12 Unilateral primary osteoarthritis, left knee; M19.90 Unspecified osteoarthritis, unspecified site; G47.33 Obstructive sleep apnea (adult) (pediatric); Z96.659 Presence of unspecified artificial knee joint; Z87.442 Personal history of urinary calculi; Z87.891 Personal history of nicotine dependence; Z79.899 Other long term (current) drug therapy
CPT/HCPCS: 36415; 74177; 80053; 85025; 85610; 85730; 96361; 96374; 99284; J2470; J7030; Q9967